=== PATIENT | female | born 1990 | race Caucasian/White ===

== ENCOUNTER → 2020-12-06 04:28 | Observation (INO) | END | disposition home or self-care (01) | LOC: 1NENULAB | PROVIDERS: ADMIT Registered Nurse; ATTEND Registered Nurse ==

== ENCOUNTER 2020-12-08 11:54 | Inpatient (IN) ==
[2020-12-08] MEDS ORDERED: Azithromycin 500 MG in 0.9 % Sodium Chloride 250 ML IVPB PRN (11:57)
[2020-12-08] MEDS ORDERED: *HR* Nalbuphine 10 MG/ML AMPUL IV PRN (11:57)
[2020-12-08] MEDS ORDERED: Famotidine 20 MG/2 ML VIAL IVP PRN (11:57)
[2020-12-08] MEDS ORDERED: Ondansetron 4 MG/2 ML VIAL IVP PRN (11:57)
[2020-12-08] MEDS ORDERED: Metoclopramide 10 MG/2 ML VIAL IVP PRN (11:57)
[2020-12-08] MEDS ORDERED: Naloxone 0.4 MG/ML INJ IVP PRN (11:57)
[2020-12-08] MEDS ORDERED: Ringers Solution, Lactated 1,000 ML IVC SCH (12:00)
[2020-12-08] MEDS ORDERED: Penicillin G Potassium 5,000,000 UNIT in 0.9 % Sodium Chloride Mini Bag 100 ML IVPB ONE (12:05)
[2020-12-08] MEDS ORDERED: Ringers Solution, Lactated 1,000 ML ONE (12:22)
[2020-12-08 12:38] LABS: Basophils % 0.2 %; Eosinophils % 0.3 %; Hematocrit 38.6 % (35.3-44.9); Hemoglobin 13.3 g/dL (11.5-15.4); Immature Granulocytes % 0.6 % (0-4); Lymphocytes # 1.9 K/mcL (0.6-4.6); Lymphocytes % 19.4 %; Mean Corpuscular HGB Conc 34.5 g/dL (31.6-35.5); Mean Corpuscular Hemoglobin 33.3 pg (28.0-33.3); Mean Corpuscular Volume 96.7 fL (83.0-100.0); Mean Platelet Volume 9.2 fL (9.4-12.4); Monocytes # 0.5 K/mcL (0.0-1.3); Monocytes % 5.4 %; Neutrophils # 7.1 K/mcL (1.6-8.9); Platelet Count 223 K/mcL (140-400); Red Blood Count 3.99 M/mcL (3.82-4.97); Red Cell Distribution Width 13.1 % (11.5-14.5); Segmented Neutrophils % 74.1 %; White Blood Count 9.6 K/mcL (4.3-11.1)
[2020-12-08 13:44] LABS: Influenza A PCR Negative (Negative); Influenza B PCR Negative (Negative); Resp. Syncytial Virus PCR Negative (Negative)
[2020-12-08 13:45] LABS: SARS-CoV-2 by PCR (In House) Negative (Negative)
[2020-12-08 14:00] LABS: Amphetamine Screen,Urine Negative ng/mL (Cutoff=1000); Barbiturate Screen,Urine Negative ng/mL (Cutoff=200); Benzodiazepines Screen,Urine Negative ng/mL (Cutoff=200); Cannabinoid Screen,Urine Negative ng/mL (Cutoff = 50); Cocaine Screen,Urine Negative ng/mL (Cutoff= 300); Opiate Screen,Urine Negative ng/mL (Cutoff=300); Phencyclidine Screen,Urine Negative ng/mL (Cutoff=25)
[2020-12-08 16:00] LABS: Hepatitis B Surface Antigen Nonreactive (Nonreactive)
[2020-12-08] MEDS: Penicillin G Potassium 2,500,000 UNIT/105 ML MLS IVPB SCH ×2 (16:28→20:50)
[2020-12-08] MEDS ORDERED: Oxytocin 20 units/ LR 1000 mL 20 UNIT/1,000 ML BAG IVC ONE (22:02)
[2020-12-08] MEDS ORDERED: Lanolin 7 G OINT...G. TP PRN (22:48)
[2020-12-08] MEDS ORDERED: Oxytocin 20 units/ LR 1000 mL 20 UNIT/1,000 ML BAG IVC SCH (22:48)
[2020-12-08] MEDS ORDERED: Ondansetron ODT 4 MG TAB.RAPDIS SL PRN (22:48)
[2020-12-08] MEDS ORDERED: Benzocaine/Menthol 56 GM AEROSOL SPRAY TP PRN (22:48)
[2020-12-08] MEDS ORDERED: Rho Immune Globulin 1,500 UNIT SYRINGE IM PRN (22:48)
[2020-12-08] MEDS: Acetaminophen 325 MG TABLET PO SCH (23:00)
[2020-12-09] MEDS: Ibuprofen 600 MG TABLET PO SCH ×3 (04:14→17:57)
[2020-12-09] MEDS: Acetaminophen 325 MG TABLET PO SCH ×2 (08:45→19:30)
[2020-12-09] MEDS ORDERED: Prenatal Vit/FA 1 EACH TABLET PO SCH (09:00)
[2020-12-09 20:15] VITALS: BP 118/59; PULSE 61; TEMP 98.1; O2SAT 97
== END 2020-12-09 22:56 | disposition home or self-care (01) | DRG 807 ==
LOC: 1NENULAB 11:54 → 1NENUOBS 12-09 00:51
PROVIDERS: ADMIT Advanced Practice Midwife; ATTEND Advanced Practice Midwife